=== PATIENT | male | born 1990 | race Two or more races ===

== ENCOUNTER 2022-05-13 10:20 | Emergency (ER) | payer MEDICAID, OTHER ==
[~2022-05-13] VITALS: Ht 167.6 cm; Wt 28.8 kg
[2022-05-13 10:41] VITALS: BP 128/86
== END 2022-05-13 15:41 | disposition left against medical advice (07) ==
LOC: ER 10:20
DX: J02.9 Acute pharyngitis, unspecified (principal); R50.9 Fever, unspecified; R51.9 Headache, unspecified; M79.10 Myalgia, unspecified site; Z20.822 Contact with and (suspected) exposure to COVID-19; Z53.21 Procedure and treatment not carried out due to patient leaving prior to being seen by health care provider
CPT/HCPCS: 36415; 87426